=== PATIENT | male | born 1985 | race Caucasian/White ===

== ENCOUNTER → 2019-01-08 | Emergency (ER) | payer OTHER, MEDICAID ==
[2019-01-08] MEDS: DEXAMETHASONE 10 MG/ML 1 ML INJ IM (08:52)
== END | disposition home or self-care (01) ==
LOC: FTE 08:16
DX: M79.2 Neuralgia and neuritis, unspecified (principal); F17.210 Nicotine dependence, cigarettes, uncomplicated
CPT/HCPCS: 96372; 99284-25